=== PATIENT | female | born 1950 | race Caucasian/White ===

== ENCOUNTER 2018-05-18 16:13 | Emergency (ER) | payer MEDICARE, OTHER ==
[~2018-05-18] VITALS: Ht 160 cm; Wt 53.5 kg
[~2018-05-18 16:13] MED LIST: ACYC5TO15G TOP; ASPI325 PO; CYCL10 PO; IBUP400 PO; OXYC5 PO
[2018-05-18] MEDS ORDERED: Polytrim Eye Dr10 ML LEFTEYE (16:51)
== END 2018-05-18 17:08 | disposition home or self-care (01) ==
LOC: ER 16:13
DX: S05.02XA Injury of conjunctiva and corneal abrasion without foreign body, left eye, initial encounter (principal); W55.03XA Scratched by cat, initial encounter; Z88.1 Allergy status to other antibiotic agents; Z88.2 Allergy status to sulfonamides; Z79.82 Long term (current) use of aspirin
CPT/HCPCS: 99282

== ENCOUNTER 2019-02-10 14:03 | Inpatient (IN) | payer MEDICARE, OTHER ==
[~2019-02-10] VITALS: Ht 160 cm; Wt 54.4 kg
[~2019-02-10 14:03] MED LIST changes: +Polytrim Eye Dr10 ML LEFTEYE
[2019-02-10 15:06] LABS: BASOPHILS ABSOLUTE AUTO 0.07 K/mm3 (0.00-0.23); BASOPHILS PERCENT AUTO 1 % (0-2); EOSINOPHILS ABSOLUTE AUTO 0.07 K/mm3 (0.00-0.68); EOSINOPHILS PERCENT AUTO 1 % (0-6); Hematocrit 44.5 % (33.0-51.0); Hemoglobin 14.8 g/dL (11.5-16.0); IMMATURE GRAN ABSOLUTE AUTO 0.03 K/mm3 (0.00-0.10); IMMATURE GRAN PERCENT AUTO 0 % (0-1); LYMPHOCYTES ABSOLUTE AUTO 1.68 K/mm3 (0.84-5.20); LYMPHOCYTES PERCENT AUTO 21 % (21-46); MONOCYTES ABSOLUTE AUTO 0.72 K/mm3 (0.16-1.47); MONOCYTES PERCENT AUTO 9 % (4-13); Mean Corpuscular HGB 30.9 pg (26.0-34.0); Mean Corpuscular HGB Conc 33.3 g/dL (31.5-36.5); Mean Corpuscular Volume 93 fL (80-100); Mean Platelet Volume 10.5 fL (9.1-12.4); NEUTROPHILS ABSOLUTE AUTO 5.49 K/mm3 (1.96-9.15); NEUTROPHILS PERCENT AUTO 68 % (41-73); Platelet Count 272 K/mm3 (150-400); RDW Coefficient Variation 12.4 % (11.7-14.2); RDW Standard Deviation 42.6 fL (35.1-46.3); Red Blood Cell Count 4.79 M/mm3 (3.80-5.20); White Blood Cell Count 8.06 K/mm3 (4.00-11.30)
[2019-02-10 15:28] LABS: Alanine Aminotransfer (ALT/SGP 28 U/L (12-78); Albumin/Globulin Ratio 1.4 (0.8-1.8); Alk Phos 61 U/L (50-136); Anion Gap 6 mmol/L (6-16); Aspartate Aminotrans (AST/SGOT 23 U/L (12-37); Bilirubin, Total 0.7 mg/dL (0.1-1.0); Blood Urea Nitrogen 15 mg/dL (8-24); Bun/Creatinine Ratio 17.8 (12.0-20.0); CO2, Blood 29 mmol/L (21-32); Calcium, Blood 9.5 mg/dL (8.5-10.1); Chloride, Blood 109 mmol/L (98-108); Creatinine, Blood 0.85 mg/dL (0.40-1.00); Globulin, Blood 2.9 g/dL (2.2-4.0); Glomerular Filtration Rate >60 (60-); Glucose, Blood 115 mg/dL (70-99); Potassium, Blood 3.7 mmol/L (3.5-5.5); Sodium, Blood 144 mmol/L (136-145); Total Protein, Blood 6.9 g/dL (6.4-8.2); Troponin I <0.015 ng/mL (0.000-0.040)
[2019-02-10] MEDS ORDERED: NAPR220 PO (19:36)
[2019-02-10] MEDS ORDERED: LEVSOD50 PO (19:36)
--- NOTE | 2019-02-11 06:07 | NUR ---
SHIFT SUMMARY PT NEW ADMIT LAST NIGHT AROUND 2244. HAS SLEPT WELL T/O NIGHT. AOX4. VSS. DENIES NAUSEA OR SOB. REPORTS MILD DULL 2/10 PAIN IN LT SHOULDER/NECK, DENIES ANY CHEST PAIN. HAS BEEN NPO SINCE 0400 TO PREPARE FOR STRESS TEST THIS AM. INDEPENDENT TO BSC. CALL LIGHT IS IN REACH.
--- NOTE | 2019-02-11 17:05 | NUR ---
PT IS ALERT AND OREITED AND COOPERATIVE WITH CARE. SHE HAD THE FIRST PART OF THE STRESS TEST COMPLETED TODAY. SHE WILL BE ABLE TO EAT TONGIHT BUT NO CAFFEINE AFTER MIDNIGHT. PT UNDERSTANDS THIS. THE SECOND PARD OF THE STRESS TEST WILL BE COMPLETED TOMORROW. PT HAS SCD'S ON IN BED. NO COMPLAINTS OF CHEST PAIN. SHE COMPLAINTED OF SOME LEFT SHOULDER PAIN THAT SHE STATES WENT AWAY WHEN SHE MASSAGED IT. NO SOB, NO NAUSEA, NO HEARTBURN, OR ANY OTHER DISCOMFORT. WILL CONTINUE TO MONITOR THE PATIENT.
--- NOTE | 2019-02-12 04:35 | NUR ---
SHIFT SUMMARY: PT IS ALERT AND ORIENTED. PT IS CALM AND COOPERATIVE WITH CARE. PT CALLS APPROPRIATELY. PT IS INDEPENDENT IN THE ROOM. PT TO HAVE 2ND PART OF STRESS TEST THIS AM. PT SLEPT MUCH OF THE NIGHT WHEN NOT DISTURBED. PT DENIES PAIN, NAUSEA, VOMITING, AND SOB. NO ACUTE CHANGES OR COMPLICATIONS OVERNIGHT. BED IN LOW POSITION, CALL LIGHT WITHIN REACH. WILL REPORT TO DAY NURSE.
[2019-02-12 06:01] LABS: Anion Gap 7 mmol/L (6-16); Blood Urea Nitrogen 12 mg/dL (8-24); Bun/Creatinine Ratio 15.1 (12.0-20.0); CO2, Blood 24 mmol/L (21-32); Chloride, Blood 110 mmol/L (98-108); Creatinine, Blood 0.79 mg/dL (0.40-1.00); Glomerular Filtration Rate >60 (60-); Glucose, Blood 91 mg/dL (70-99); Potassium, Blood 4.1 mmol/L (3.5-5.5); Sodium, Blood 141 mmol/L (136-145)
--- NOTE | 2019-02-12 16:54 | NUR ---
SHIFT SUMMARY PATIENT A&O X4, INDEPENDENT IN THE ROOM. DENIES ANY SOB OR CHEST PAIN THIS SHIFT. C/O A HEADACHE AND NAUSEA BUT REFUSED ANY MEDICATION. SECOND PART OF STRESS TEST COMPLETED. TELE SR @ 64 PER ASSISTANT BUSINESS MANAGER. NO ACUTE CHANGES THIS SHIFT. RN WILL CONTINUE TO MONITOR.
[2019-02-13 05:30] LABS: BASOPHILS ABSOLUTE AUTO 0.05 K/mm3 (0.00-0.23); BASOPHILS PERCENT AUTO 1 % (0-2); EOSINOPHILS ABSOLUTE AUTO 0.14 K/mm3 (0.00-0.68); EOSINOPHILS PERCENT AUTO 2 % (0-6); Hematocrit 45.9 % (33.0-51.0); Hemoglobin 15.2 g/dL (11.5-16.0); IMMATURE GRAN ABSOLUTE AUTO 0.01 K/mm3 (0.00-0.10); IMMATURE GRAN PERCENT AUTO 0 % (0-1); LYMPHOCYTES ABSOLUTE AUTO 1.71 K/mm3 (0.84-5.20); LYMPHOCYTES PERCENT AUTO 27 % (21-46); MONOCYTES PERCENT AUTO 10 % (4-13); Mean Corpuscular HGB 30.5 pg (26.0-34.0); Mean Corpuscular HGB Conc 33.1 g/dL (31.5-36.5); Mean Corpuscular Volume 92 fL (80-100); Mean Platelet Volume 10.3 fL (9.1-12.4); NEUTROPHILS ABSOLUTE AUTO 3.83 K/mm3 (1.96-9.15); NEUTROPHILS PERCENT AUTO 60 % (41-73); Platelet Count 222 K/mm3 (150-400); RDW Coefficient Variation 12.4 % (11.7-14.2); RDW Standard Deviation 41.8 fL (35.1-46.3); Red Blood Cell Count 4.98 M/mm3 (3.80-5.20); White Blood Cell Count 6.34 K/mm3 (4.00-11.30)
--- NOTE | 2019-02-13 06:09 | NUR ---
NOC SHIFT SUMMARY PT HAS BEEN PLEASANT AND COOPERATIVE WITH CARE THIS NIGHT. SHE HAS COPLAINED OF FEELING HOT AND THEN COLD AND BREAKING OUT IN SWEATS OFF AND ON BUT NO OTHER S/S. SHE HAS SLEPT MOST OF THE NIGHT RESTFULLY. HER VS HAVE BEEN STABLE AND PER RADIO STATION OPERATOR SHE HAS BEEN IN SINUS RHYTHM WITH A FIRST DEGREE BLOCK. SHE IS CURRENTLY GOING FOR A WALK DOWN THE HALWAY WITH ANOTHER PT AND TALKING HAPPILLY. APPEARS IN NO ACUTE DISTRESS. WILL CONTINUE TO MONITOR.
[2019-02-13 06:24] LABS: Alanine Aminotransfer (ALT/SGP 20 U/L (12-78); Albumin, Blood 3.5 g/dL (3.4-5.0); Albumin/Globulin Ratio 1.2 (0.8-1.8); Alk Phos 48 U/L (50-136); Anion Gap 6 mmol/L (6-16); Aspartate Aminotrans (AST/SGOT 14 U/L (12-37); Bilirubin, Total 0.7 mg/dL (0.1-1.0); Blood Urea Nitrogen 15 mg/dL (8-24); Bun/Creatinine Ratio 19.5 (12.0-20.0); CO2, Blood 25 mmol/L (21-32); Calcium, Blood 8.9 mg/dL (8.5-10.1); Chloride, Blood 111 mmol/L (98-108); Creatinine, Blood 0.77 mg/dL (0.40-1.00); Globulin, Blood 2.9 g/dL (2.2-4.0); Glomerular Filtration Rate >60 (60-); Glucose, Blood 89 mg/dL (70-99); Potassium, Blood 3.9 mmol/L (3.5-5.5); Sodium, Blood 142 mmol/L (136-145); Total Protein, Blood 6.4 g/dL (6.4-8.2)
--- NOTE | 2019-02-13 19:37 | NUR ---
SUMMARY- \\ PT HAD NO DIAPHORETIC/SWEAT EPISODES TODAY. DID HAVE ONE EPISODE OF ACUTE LOSS OF BALANCE AND WEAKNESS IN LEGS WHEN WALKING VERY FAST AROUND THE [place], DENIED DIZZINESS, STATES ONLY WEAKNESS IN LEGS. HAD ONE EPISODE OF SLEEPINESS AND C/O DIFFICULTY BREATHING- STATES HER SPIRITUAL FRIEND GUIDED HER IN RELAXATION TECH IN BREATHING CALLING "SPIRIT" AND THIS IS WHEN SHE HAD HER BREATHING EPISODE- RESOLVED WITH REASURANCE AND ANXIETY RELEIF. VSS, ECHO DONE TODAY. TOLERATING FOOD AND FLUIDS. PLAN FOR NPO AFTER MN TO PERFORM CARDIAC CATH. REPORTED ALL TO HORTENSIA RN.
--- NOTE | 2019-02-14 04:42 | NUR ---
NOC SHIFT SUMMARY PT HAS BEEN PLEASANT AND COOPERATIVE WITH CARE. VSS. SHE HAS BEEN NPO SINCE MIDNIGHT. HAS SLEPT MOST OF NIGHT. HAVE NOT HAD ANY COMPLAINTS OF DISCOMFORT. PT APPEARS IN NO ACUTE DISTRESS. TELE REMAINS SINUS RHYTHM RATE 62 AT THIS TIME. SHE DID HAVE A REQUEST TO HAVE KEYS TAKEN TO [facility] SO THAT HER FRIEND CAN GET THEM WITHOUT COMING ALL THE WAY UP TO 3RD FLOOR. I GAVE THE KEYS TO RICKI MCKEON WHO SENT THEM TO [facility].
[2019-02-14 05:04] LABS: BASOPHILS ABSOLUTE AUTO 0.07 K/mm3 (0.00-0.23); BASOPHILS PERCENT AUTO 1 % (0-2); EOSINOPHILS ABSOLUTE AUTO 0.16 K/mm3 (0.00-0.68); EOSINOPHILS PERCENT AUTO 2 % (0-6); Hematocrit 50.8 % (33.0-51.0); Hemoglobin 16.9 g/dL (11.5-16.0); IMMATURE GRAN ABSOLUTE AUTO 0.03 K/mm3 (0.00-0.10); IMMATURE GRAN PERCENT AUTO 0 % (0-1); LYMPHOCYTES ABSOLUTE AUTO 2.48 K/mm3 (0.84-5.20); LYMPHOCYTES PERCENT AUTO 29 % (21-46); MONOCYTES ABSOLUTE AUTO 0.85 K/mm3 (0.16-1.47); MONOCYTES PERCENT AUTO 10 % (4-13); Mean Corpuscular HGB 30.6 pg (26.0-34.0); Mean Corpuscular HGB Conc 33.3 g/dL (31.5-36.5); Mean Corpuscular Volume 92 fL (80-100); Mean Platelet Volume 10.4 fL (9.1-12.4); NEUTROPHILS ABSOLUTE AUTO 5.12 K/mm3 (1.96-9.15); NEUTROPHILS PERCENT AUTO 59 % (41-73); Platelet Count 245 K/mm3 (150-400); RDW Coefficient Variation 12.3 % (11.7-14.2); RDW Standard Deviation 41.4 fL (35.1-46.3); Red Blood Cell Count 5.53 M/mm3 (3.80-5.20); White Blood Cell Count 8.71 K/mm3 (4.00-11.30)
[2019-02-14 05:32] LABS: Alanine Aminotransfer (ALT/SGP 31 U/L (12-78); Albumin/Globulin Ratio 1.2 (0.8-1.8); Alk Phos 55 U/L (50-136); Anion Gap 7 mmol/L (6-16); Aspartate Aminotrans (AST/SGOT 32 U/L (12-37); Bilirubin, Total 0.7 mg/dL (0.1-1.0); Blood Urea Nitrogen 14 mg/dL (8-24); Bun/Creatinine Ratio 18.5 (12.0-20.0); CHOL/HDL RATIO 2.3; CO2, Blood 25 mmol/L (21-32); Calcium, Blood 9.4 mg/dL (8.5-10.1); Chloride, Blood 111 mmol/L (98-108); Cholesterol 143 mg/dL (50-200); Creatinine, Blood 0.76 mg/dL (0.40-1.00); Globulin, Blood 3.2 g/dL (2.2-4.0); Glomerular Filtration Rate >60 (60-); Glucose, Blood 83 mg/dL (70-99); HDL Cholesterol 62 mg/dL (>39); LDL/HDL RATIO 1.1; Low Density Lipoprotein Chol 66 mg/dL (0-110); Potassium, Blood 4.4 mmol/L (3.5-5.5); Sodium, Blood 143 mmol/L (136-145); Total Protein, Blood 7.2 g/dL (6.4-8.2); Triglycerides 74 mg/dL (30-160); Very Low Density Lipoprot Chol 14 mg/dL (6-32)
--- NOTE | 2019-02-14 12:22 | NUR ---
PT SENT TO CARDIAC SENIOR SOFTWARE ARCHITECT. HAS BEEN NPO SINCE MN. HELD AM MEDS RELATED TO NPO STATUS. LAC#[id number]. KEYS GIVEN BACK TO PT, RV HAS BEEN PARKED IN HOSPITAL PARKING LOT.
[2019-02-14] MEDS ORDERED: ASPI81CH PO (16:10)
[2019-02-14] MEDS ORDERED: ACET325 PO (16:11)
[2019-02-14] MEDS ORDERED: CYCL10 PO (16:11)
--- NOTE | 2019-02-14 17:58 | NUR ---
PT ARRIVED FROM MACHINIST WOOD AT 1300- BEGAN TO DEFLATE TR BAND AT 1545 REMOVED 2ML MONITORED FOR BLEEDING, NO BLEEDING BY 1600 ANOTHER 2ML REMOVED. AT 1625 NO INDICATION OF SWELLING AT THE SITE OR ABNORMAL SIZED BRUISING REMOVED ANOTHER 2ML, PT STATED SITE HAD BECOME PAINFUL, REMINDED HER NOT TO MOVE THE EXTREMITY. AT 1645 REMOVED ADDITIONAL 2ML, 1705 ANOTHER 2ML. TR BAND COMPLETELY DEFLATED AT 1720. WILL CTM. AT THIS TIME NO SIGNS OF BLEEDING, OOZING AT THE SITE OR SWELLING AT THIS TIME.
--- NOTE | 2019-02-14 19:21 | NUR ---
DISCHARGE NOTE: Pt given verbal and written discharge instructions. Pt had many questions that were addressed. R radial site TR band was removed and tegaderm dressing was placed. NO bleeding, swelling, oozing or hematoma noted. Imobilizer placed and Pt instructed to leave in place for next 24-48 hours. Rx were called to [facility] on [address]. Pt left via W/C. Stable at time of discharge.
== END 2019-02-14 19:25 | disposition home or self-care (01) | DRG 287 ==
LOC: ER 14:03 → MEDS 14:04 → PCU 02-14 12:59
PROVIDERS: Emergency Medicine; Family Medicine; Student in an Organized Health Care Education/Training Program; ADMIT Internal Medicine
PROC: 4A023N7 Measurement of Cardiac Sampling and Pressure, Left Heart, Percutaneous Approach (ICD-10-PCS; principal; 2019-02-14)
PROC: B211YZZ Fluoroscopy of Multiple Coronary Arteries using Other Contrast (ICD-10-PCS; 2019-02-14)
PROC: B215YZZ Fluoroscopy of Left Heart using Other Contrast (ICD-10-PCS; 2019-02-14)
DX: I25.10 Atherosclerotic heart disease of native coronary artery without angina pectoris (principal); E03.9 Hypothyroidism, unspecified; K21.9 Gastro-esophageal reflux disease without esophagitis; E78.5 Hyperlipidemia, unspecified; K57.30 Diverticulosis of large intestine without perforation or abscess without bleeding; B00.9 Herpesviral infection, unspecified; K44.9 Diaphragmatic hernia without obstruction or gangrene
CPT/HCPCS: 36415; 71046; 73030; 78452; 80048; 80053; 80061; 82607; 82746; 83735; 84484; 85025; 87081; 93005; 93010; 93017; 93306; 93458; 96361; 96372; 96374; 99152; 99153; 99285-25; A9500; C1769; C1894; G0378; J1644; J1650; J1885; J2060; J2250; J3010; J7030; Q9967

== ENCOUNTER 2019-02-14 23:49 | Emergency (ER) | payer MEDICARE, OTHER ==
[~2019-02-14] VITALS: Ht 160 cm; Wt 54.4 kg
[~2019-02-14 23:49] MED LIST changes: +ACET325 PO; +ASPI81CH PO; +LEVSOD50 PO; +NAPR220 PO
== END 2019-02-15 01:50 | disposition home or self-care (01) ==
LOC: ER 23:49
DX: I97.89 Other postprocedural complications and disorders of the circulatory system, not elsewhere classified (principal); Z88.1 Allergy status to other antibiotic agents; Z88.2 Allergy status to sulfonamides; Z88.8 Allergy status to other drugs, medicaments and biological substances; Z79.899 Other long term (current) drug therapy; Z79.82 Long term (current) use of aspirin; Z87.891 Personal history of nicotine dependence
CPT/HCPCS: 99283